=== PATIENT | male | born 1935 | race Caucasian/White ===

== ENCOUNTER 2016-09-19 11:14 | Observation (INO) | payer MEDICARE, OTHER ==
[~2016-09-19] VITALS: Ht 182.9 cm; Wt 83.9 kg
[2016-09-19 12:13] LABS: Basophils # (auto) 0 uL; Basophils % (auto) 0.1 % (0.0-2.0); Eosinophils # (auto) 0 uL; Eosinophils % (auto) 0.1 % (0.0-7.0); Hemoglobin 15.1 g/dL (13.5-17.5); Lymphocytes # (auto) 1.4 uL; Lymphocytes % (auto) 17.5 % (10.0-50.0); Mean Corpuscular Hemoglobin 31.2 pg (28.0-32.0); Mean Corpuscular Hgb Conc. 34.2 g/dL (32.0-36.0); Mean Corpuscular Volume 91.2 fL (80.0-100.0); Mean Platelet Volume 7.8 fL (7.4-10.4); Monocytes # (auto) 0.1 uL; Monocytes % (auto) 0.7 % (0.0-12.0); Neutrophils # (auto) 6.5 uL; Neutrophils % (auto) 81.6 % (37.0-80.0); Platelet Count (auto) 92 10^3/uL (140-450); Red Cell Distribution Width 13.8 % (11.6-16.0)
[2016-09-19 12:27] LABS: INR 1.01 (0.9-1.15); Partial Thromboplastin Time 23.4 sec (22.64-33.71); Prothrombin Time 10.9 sec (9.37-12.3)
[2016-09-19 12:38] LABS: Lactic Acid w/Reflex 2.6 mmol/L (0.4-2.0)
[2016-09-19 12:39] LABS: REFLEX LACTIC ACID YES OR NO YES
[2016-09-19 12:50] LABS: Albumin 2.3 g/dL (3.4-5.0); BUN/Creatinine Ratio 44.9; Bilirubin, Total 1.6 mg/dL (0.2-1.0); Calcium 8.2 mg/dL (8.5-10.1); Magnesium 2.2 mg/dL (1.6-2.6); Potassium 3.9 mmol/L (3.5-5.1); Total Protein 6.1 g/dL (6.4-8.2)
[2016-09-19 13:36] LABS: Urine Bilirubin Negative (Negative); Urine Blood Negative /uL (Negative); Urine Ca Oxalate Crystal FEW (None Seen); Urine Color Yellow (Yellow); Urine Glucose Normal (Normal); Urine Ketone Negative (Negative); Urine Mucus FEW (None Seen); Urine Nitrite Negative (Negative); Urine RBC 1 /hpf (0 - 3); Urine Squamous Epithelial Cell FEW /hpf (<5)
[2016-09-19 16:04] VITALS: BP 108/49
[2016-09-19] MEDS ORDERED: cefTRIAXone 1GM/50ML D5W 50 ML IV ONE (16:15)
== END 2016-09-19 16:12 | disposition short-term general hospital (02) | DRG 83 ==
LOC: ER 11:22 → OVERFLOW 11:38 → ER 16:12
PROVIDERS: ADMIT Family Medicine; ATTEND Family Medicine
DX: S06.5X9A Traumatic subdural hemorrhage with loss of consciousness of unspecified duration, initial encounter (principal); C78.00 Secondary malignant neoplasm of unspecified lung; R41.82 Altered mental status, unspecified; K21.9 Gastro-esophageal reflux disease without esophagitis; J44.9 Chronic obstructive pulmonary disease, unspecified; R56.9 Unspecified convulsions; F17.210 Nicotine dependence, cigarettes, uncomplicated; X58.XXXA Exposure to other specified factors, initial encounter; Y93.89 Activity, other specified; Y99.8 Other external cause status; Y92.89 Other specified places as the place of occurrence of the external cause; Z85.820 Personal history of malignant melanoma of skin
CPT/HCPCS: 36415; 70450; 71010; 80053; 80320; 81001; 82962; 83605; 83735; 84484; 85025; 85610; 85730; 87040; 87086; 87088; 87186; 93005; G0378